=== PATIENT | female | born 1995 | race Caucasian/White ===

== ENCOUNTER 2018-06-27 00:42 | Emergency (ER) | payer BC, OTHER ==
[2018-06-27] MEDS ORDERED: diphenhydrAMINE 50 MG/ML VIAL IVP ONE (00:45)
[2018-06-27] MEDS ORDERED: methylPREDNIS SUCC 125 MG/2ML IVP ONE (00:45)
--- NOTE | 2018-06-27 00:45 | ER Report ---
History and Physical Time Seen By MD: 00:45 HPI/ROS CHIEF COMPLAINT: Difficulty breathing HISTORY OF PRESENT ILLNESS: 23-year-old female brought in by her friends after consuming alcohol this evening. 30 minutes ago she broke out in hives and developed some difficulty breathing. Patient states she's never had an allergic reaction like this before. She was drinking a mixed drink involving 5, and 5 hour energy. Patient denies throat closing sensation. She has no wheezing. Her vital signs are stable. Her pulse ox is normal. REVIEW OF SYSTEMS: Respiratory: As above Cardiovascular: No chest pain, no palpitations. Gastrointestinal: No vomiting, no abdominal pain. Musculoskeletal: No back pain. Allergies: Coded Allergies: Penicillins (Verified Allergy, Intermediate, 06/27/18) unknown Home Meds Active Scripts Prednisone 10 Mg Tab (PREDNISONE 10 MG TAB) 10 Mg Tablet, 10 MG PO QDAY PRN for allergic reaction, #6 2 tabs daily for 2 days 1 tab daily for 2 days Prov:KUSUM SCOTT Dax KELLY 06/27/18 Reviewed Nurses Notes: Yes Old Medical Records Reviewed: Yes Constitutional Vital Sign - Last 24 Hours 06/27/18 06/27/18 06/27/18 06/27/18 00:43 01:00 01:12 01:30 Temp 97.5 Pulse 101 89 Resp 30 B/P (MAP) 108/97 122/95 (104) 123/87 (99) Pulse Ox 100 89 O2 Delivery Room Air Physical Exam Vital signs stable, afebrile, pulse ox normal General Appearance: The patient is alert, has no immediate need for airway p rotection and no current signs of toxicity. HEENT: Pupils equal and round no injection. TMs normal, oropharynx without edema or erythema. Respiratory: Chest is non tender, lungs are clear to auscultation. No wheezing or rails Cardiac: regular rate and rhythm Gastrointestinal: Abdomen is soft and non tender, no masses, bowel sounds normal. Musculoskeletal: Neck: Neck is supple and non tender. No lymphadenopathy, no JVD Extremities have full range of motion and are non tender. No edema, no calf tenderness Skin: No rashes or lesions. DIFFERENTIAL DIAGNOSIS: After history and physical exam differential diagnosis was considered for allergic reaction, anaphylaxis, alcohol poisoning, cannabis toxicity Medical Decision Making ED Course/Re-evaluation Clinical Indication for ER IV: Hydration, IV Access ED Course Patient was admitted to an examination room. H&P was done. The differential diagnoses was considered. On clinical examination. Patient with hives and itching after consuming alcoholic beverages mixed with 5 hour energy and other assorted mixes. Patient's unsure that she has any allergies. She has no throat closing sensation, but is feeling out of sorts. She is treated with IV Solu-Me drol 125 mg and Benadryl 25 mg. Her blood alcohol returns mildly elevated at 195. Patient's discharged home with a prednisone taper and advised Benadryl 3 times a day for the next several days. She is cautioned return to the ER for any worsening. Decision to Disposition Date: Jun 27, 2018 Decision to Disposition Time: 01:59 Depart Departure Latest Vital Signs Vital Signs Date Time Temp Pulse Resp B/P (MAP) Pulse Ox O2 Delivery O2 Flow Rate FiO2 06/27/18 01:30 123/87 (99) 06/27/18 01:12 89 89 06/27/18 00:43 97.5 30 Room Air Impression: Primary Impression: Allergic reaction Additional Impression: Urticaria Condition: Improved Disposition: HOME OR SELF-CARE Referrals: BRANDON WILLS MD, FARRUKH MD New Scripts Prednisone 10 Mg Tab (PREDNISONE 10 MG TAB) 10 Mg Tablet 10 MG PO QDAY PRN for allergic reaction, #6 2 tabs daily for 2 days 1 tab daily for 2 days Prov: KUSUM SCOTT DO 06/27/18 Patient Instructions: General Allergic Reaction (ED) Additional Instructions: Take Benadryl 25 mg every 6-8 hours as needed for itching You may try Zyrtec 10 mg in the morning but it does not prevent itching. You need to take Benadryl Return to the ER for any worsening Follow-up with [facility] if unimproved in 3-5 days Problem Qualifiers Primary Impression: Allergic reaction Encounter type: initial encounter Qualified Codes: T78.40XA - Allergy, unspecified, initial encounter KUSUM SCOTT DO Jun 27, 2018 00:45
[2018-06-27] MEDS ORDERED: NS(*) 0.9% 1000 ML BAG 1,000 ML IV ONE (01:00)
[2018-06-27] MEDS ORDERED: ONDANSETRON 4 MG/2 ML VIAL IVP ONE (01:05)
[2018-06-27] MEDS ORDERED: ONDANSETRON 4 MG/2 ML VIAL ONE (01:07)
[2018-06-27 01:30] VITALS: BP 123/87
[2018-06-27] MEDS ORDERED: PRED-1 PO (01:58)
[2018-06-27] MEDS ORDERED: diphenhydrAMINE 25 MG CAP TH PO ONE (02:00)
== END 2018-06-27 02:08 | disposition home or self-care (01) ==
LOC: ER 00:48
DX: T78.40XA Allergy, unspecified, initial encounter (principal); L50.9 Urticaria, unspecified
CPT/HCPCS: 96361; 96374; 96375; 99284; J1200; J2405; J2930; J7030